=== PATIENT | male | born 1985 | race Caucasian/White ===

== ENCOUNTER 2018-02-03 15:53 | Emergency (ER) | payer SELFPAY ==
[2018-02-03] MEDS ORDERED: Diphtheria,Pertussis(Acell),Tetanus Vaccine 0.5 ML Syringe IM ONE (16:14)
--- NOTE | 2018-02-03 16:19 | EDM.PDOC ---
ED HPI GENERAL MEDICAL PROBLEM - General Chief Complaint: Skin Complaint Stated Complaint: CUT ON PT LT HAND Time Seen by Provider: 02/03/18 16:14 Source of Information: Reports: Patient History Limitations: Reports: No Limitations - History of Present Illness INITIAL COMMENTS - FREE TEXT/NARRATIVE: HISTORY AND PHYSICAL: []32-year-old patient who has a cut to the left forearm 3 days ago History of Present Illness: []And states it is getting red now and he thinks it might be starting to be infected Review of Systems: As per history of present illness and below otherwise all systems reviewed and negative. Past medical history: As per history of present illness and as reviewed below otherwise noncontributory. Surgical history: As per history of present illness and as reviewed below otherwise noncontributory. Social history: No reported history of drug or alcohol abuse. Family history: As per history of present illness and as reviewed below otherwise noncontributory. Physical exam: HEENT: Atraumatic, normocehpalic, pupils reactive, negative for conjunctival pallor or scleral icterus, mucous membranes moist, throat clear, neck supple, nontender, trachea midline. Lungs: Clear to auscultation, breath sounds equal bilaterally, chest non tender. Heart: S1S2, regular, negative for clicks, rubs, or JVD. Abdomen: Soft, nondistended, nontender. Negative for masses or hepatossplenmegaly. Negative for costovertebral tenderness. Pelvis: Stable nontender. Genitourinary: Deferred. Rectal: Deferred Extremities: Atraumatic, negative for cords or calf pain. Small healing laceration noted to the left forearm. Mild erythema at the healing site. No heat radiating no pustular material. Full range of motion is noted to his wrist and hand. Neurovascular unremarkable. Neuro: Awake, alert, oriented. Cranial nerves II through XII unremarkable. Cerebellum unremarkable. Motor and sensory unremarkable throughout. Exam nonfocal. Diagnostics: [] Therapeutics: []Adacel Impression: []Healing laceration/ Plan: []Discharge home Keflex 500 3 times a day 1 week Definitive disposition and diagnosis as appropriate pending reevaluation and review of above. Onset: Sudden Duration: Day(s): (3) Location: Reports: Upper Extremity, Left Quality: Reports: Ache Severity: Mild Improves with: Reports: None Worsens with: Reports: None Associated Symptoms: Reports: No Other Symptoms - Related Data Home Meds: Home Meds Cephalexin 500 mg PO TID #21 capsule 02/03/18 [Rx] ED ROS GENERAL - Review of Systems Review Of Systems: ROS reveals no pertinent complaints other than HPI. ED EXAM, SKIN/RASH Exam: See Below (See dictation) Course - Orders/Labs/Meds Orders: Active Orders 24 hr Category Date Time Status Vaccines to be Administered [RC] PER UNIT ROUTINE Care 02/03/18 16:14 Ordered Diphth,Pertuss(Acell),Tet Vac [Adacel] Med 02/03/18 16:14 Once 0.5 ml IM .ONCE ONE Departure - Departure Time of Disposition: 16:16 Disposition: Home, Self-Care 01 Condition: Good Clinical Impression: Healing laceration - Discharge Information Prescriptions: Cephalexin 500 mg PO TID #21 capsule Referrals: PCP,None [Primary Care Provider] - - My Orders Last 24 Hours: My Active Orders 02/03/18 16:14 Vaccines to be Administered [RC] PER UNIT ROUTINE Diphth,Pertuss(Acell),Tet Vac [Adacel] 0.5 ml IM .ONCE ONE - Assessment/Plan Last 24 Hours: My Active Orders 02/03/18 16:14 Vaccines to be Administered [RC] PER UNIT ROUTINE Diphth,Pertuss(Acell),Tet Vac [Adacel] 0.5 ml IM .ONCE ONE
== END 2018-02-03 16:48 | disposition home or self-care (01) ==
LOC: MW.ED 15:53
DX: S51.812D Laceration without foreign body of left forearm, subsequent encounter (principal); Z23 Encounter for immunization; W45.8XXD Other foreign body or object entering through skin, subsequent encounter
CPT/HCPCS: 90471; 90715; 99282-25

== ENCOUNTER 2018-02-13 15:54 | Emergency (ER) | payer BC ==
--- NOTE | 2018-02-13 16:21 | EDM.PDOC ---
ED HPI GENERAL MEDICAL PROBLEM - General Chief Complaint: Upper Extremity Injury/Pain Stated Complaint: PAIN/NUMBNESS FINGERS/BOTH HANDS Time Seen by Provider: 02/13/18 16:17 Source of Information: Reports: Patient History Limitations: Reports: No Limitations - History of Present Illness INITIAL COMMENTS - FREE TEXT/NARRATIVE: HISTORY AND PHYSICAL: []32-year-old male presenting with tingling and pain to his hands History of Present Illness: []For the last month patient's been having difficulty with tingling he states his hands of never been very strong when he started this job. Job entails a lot of lifting. Pain is worse in the morning and improves throughout the day. Also stiffness. Review of Systems: As per history of present illness and below otherwise all systems reviewed and negative. Past medical history: As per history of present illness and as reviewed below otherwise noncontributory. Surgical history: As per history of present illness and as reviewed below otherwise noncontributory. Social history: No reported history of drug or alcohol abuse. Family history: As per history of present illness and as reviewed below otherwise noncontributory. Physical exam: Alert and oriented during questions appropriately in full sentences without any shortness of breath. Nontoxic in appearance HEENT: Atraumatic, normocehpalic, pupils reactive, negative for conjunctival pallor or scleral icterus, mucous membranes moist, throat clear, neck supple, nontender, trachea midline. Lungs: Clear to auscultation, breath sounds equal bilaterally, chest non tender. Heart: S1S2, regular, negative for clicks, rubs, or JVD. Abdomen: Soft, nondistended, nontender. Negative for masses or hepatossplenmegaly. Negative for costovertebral tenderness. Pelvis: Stable nontender. Genitourinary: Deferred. Rectal: Deferred Extremities: Atraumatic, negative for cords or calf pain. Nicholas's test is negative bilaterally good blood flow was noted through both hands admission is intact. Radial pulse easily palpable. Tinel's is positive, Phalen's positive. She was noted to his Neurovascular unremarkable. Neuro: Awake, alert, oriented. Cranial nerves II through XII unremarkable. Cerebellum unremarkable. Motor and sensory unremarkable throughout. Exam nonfocal. Diagnostics: []Hand x-rays Therapeutics: []Bilateral wrist braces/cock-up splint Impression: []BiLateral Carpal tunnel Plan: []Discharged home Wear your wrist braces while at home [id number] medication for discomfort Follow up with Dr. Mariana Hector Definitive disposition and diagnosis as appropriate pending reevaluation and review of above. Onset: Gradual Duration: Week(s): Location: Reports: Upper Extremity, Left, Upper Extremity, Right Quality: Reports: Ache Severity: Moderate Improves with: Reports: None Worsens with: Reports: None Bilateral Hand Pain Score (Numeric/FACES): 4 - Related Data Allergies Allergy/AdvReac Type Severity Reaction Status Date / Time No Known Allergies Allergy Verified 02/13/18 16:15 Home Meds: Home Meds . [No Known Home Meds] 02/13/18 [History] Past Medical History - Past Health History Medical/Surgical History: Denies Medical/Surgical History Social & Family History - Family History Family Medical History: Noncontributory Review of Systems - Review of Systems Review Of Systems: ROS reveals no pertinent complaints other than HPI. ED EXAM, GENERAL - Physical Exam Exam: See Below (See dictation) Course - Vital Signs Last Recorded V/S: Last Vital Signs Temp 36.7 C 02/13/18 16:11 Pulse 77 02/13/18 16:11 Resp 16 02/13/18 16:11 BP 140/69 02/13/18 16:11 Pulse Ox 96 02/13/18 16:11 - Orders/Labs/Meds Orders: Active Orders 24 hr Category Date Time Status Splinting [RC] ASDIRECTED Care 02/13/18 17:25 Ordered Hand 2V Lt [CR] Stat Exams 02/13/18 16:21 Taken Hand 2V Rt [CR] Routine Exams 02/13/18 Taken Departure - Departure Time of Disposition: 17:25 Disposition: Home, Self-Care 01 Condition: Good Clinical Impression: Carpal tunnel syndrome on both sides - Discharge Information Instructions: Cast or Splint Care, Adult, [id number] Referrals: PCP,None [Primary Care Provider] - Forms: ED Department Discharge Additional Instructions: The following information is given to patients seen in the emergency department who are being discharged to home. This information is to outline your options for follow-up care. We provide all patients seen in our emergency department with a follow-up referral. The need for follow-up, as well as the timing and circumstances, are variable depending upon the specifics of your emergency department visit. If you don't have a primary care physician on staff, we will provide you with a referral. We always advise you to contact your personal physician following an emergency department visit to inform them of the circumstance of the visit and for follow-up with them and/or the need for any referrals to a consulting specialist. The emergency department will also refer you to a specialist when appropriate. This referral assures that you have the opportunity for followup care with a specialist. All of these measure are taken in an effort to provide you with optimal care, which includes your followup. Under all circumstances we always encourage you to contact your private physician who remains a resource for coordinating your care. When calling for followup care, please make the office aware that this follow-up is from your recent emergency room visit. If for any reason you are refused follow-up, please contact the [facility] emergency department at and asked to speak to the emergency department charge nurse. No fractures were noted suspected with the examination that you have carpal tunnel Wrist braces have been applied Follow-up with Dr. Mariana Hector [facility] - [facility] [address] [place] [address], [address] [place] [address] Please call for an appointment Current emergency room as instructed and discussed - My Orders Last 24 Hours: My Active Orders 02/13/18 16:21 Hand 2V Lt [CR] Stat 02/13/18 17:25 Splinting [RC] ASDIRECTED - Assessment/Plan Last 24 Hours: My Active Orders 02/13/18 16:21 Hand 2V Lt [CR] Stat 02/13/18 17:25 Splinting [RC] ASDIRECTED
--- NOTE | 2018-02-14 19:00 | CR ---
EXAM DATE: 02/13/18 PATIENT'S AGE: 32 Patient: MODESTA ARELLANO Facility: [place], [place] Site . Site : 1985 Study: XRay Extremity Right hand [id number]/1/2018 4:51:08 PM Ordering Physician: Doctor Barnhart Final Report: INDICATION: Hand pain. Limited range of motion. TECHNIQUE: One view. IMPRESSION: No fracture or bone lesion or joint abnormality. Soft tissues appear normal. Dictated by Umair Keller MD @ Feb 13 2018 5:16PM (Electronic Signature) Report Signed by Proxy. RANDOLPH
--- NOTE | 2018-02-14 19:01 | CR ---
EXAM DATE: 02/13/18 PATIENT'S AGE: 32 Patient: MODESTA ARELLANO Facility: [place], [place] Site . Site : 1985 Study: XRay Extremity Left hand [id number]/1/2018 4:52:15 PM Ordering Physician: Doctor Barnhart Final Report: INDICATION: Pain. Limited range of motion. TECHNIQUE: One view. IMPRESSION: Negative. No fracture or bone lesion. Mild maintained joint spaces with anatomic alignment. Soft tissues appear normal. Bone density appears normal. Dictated by Umair Keller MD @ Feb 13 2018 5:16PM (Electronic Signature) Report Signed by Proxy. RANDOLPH
== END 2018-02-13 17:45 | disposition home or self-care (01) ==
LOC: MW.ED 15:54
DX: G56.03 Carpal tunnel syndrome, bilateral upper limbs (principal)
CPT/HCPCS: 73120-26-LT; 73120-26-RT; 73120-LT; 73120-RT; 99282; 99283